=== PATIENT | female | born 2000 | race Caucasian/White ===

== ENCOUNTER 2024-04-29 13:16 | Emergency (ER) | payer BC ==
[~2024-04-29] VITALS: Ht 152.4 cm; Wt 39.0 kg
[2024-04-29 13:25] VITALS: BP_SYST 123; PULSE 158; RESP 18; TEMP 100.4; O2SAT 98
[2024-04-29] MEDS ORDERED: methylPREDNISolone SOD SUCC/PF 62.5 MG/ML VIAL ONE (14:03)
[2024-04-29] MEDS: DIPHENHYDRAMINE INJ 50 MG/ML VIAL IVP ONE (14:09)
[2024-04-29] MEDS: methylPREDNISolone SOD SUCC/PF 62.5 MG/ML VIAL IVP ONE (14:10)
[2024-04-29] MEDS: NACL 0.9% 1,000 ML IV ONE (14:27)
[2024-04-29] MEDS: IBUPROFEN 600 MG TABLET PO ONE (14:28)
[2024-04-29 15:03] LABS: CALCIUM 8.5 mg/dL (8.4-11.0); CREATININE 0.84 mg/dL (0.55-1.30); POTASSIUM 3.2 mmol/L (3.5-5.1)
[2024-04-29 15:07] LABS: HEMATOCRIT 39.3 % (36-48); PLATELET COUNT (AUTO) 182 K/uL (130-430)
[2024-04-29 15:13] LABS: BASOPHILS % (AUTO) 0.1 % (0.0-2.0); HEMOGLOBIN 13.7 g/dL (12.0-16.0); LYMPHOCYTES # (AUTO) 0.9 K/uL (1.0-5.5); LYMPHOCYTES % (AUTO) 10.6 % (20.5-51.5); MEAN CORPUSCULAR HEMOGLOBIN 31 pg (27-31); MEAN CORPUSCULAR HGB CONC 35 % (32-36); MEAN CORPUSCULAR VOLUME 90 fL (79.0-98.0); MONOCYTES # (AUTO) 0.4 K/uL (0.0-1.0); NEUTROPHILS # (AUTO) 7.3 K/uL (1.8-7.7); NEUTROPHILS % (AUTO) 84.3 % (40.0-70.0); RED BLOOD CELL COUNT(AUTO) 4.39 MIL/uL (4.2-6.2); WHITE BLOOD COUNT (AUTO) 8.7 K/uL (4.8-10.8)
[2024-04-29 15:38] VITALS: BP_SYST 123; PULSE 130; RESP 18; TEMP 98.9; O2SAT 98
== END 2024-04-29 15:37 | disposition home or self-care (01) ==
LOC: SED 13:16
DX: L50.9 Urticaria, unspecified (principal); R00.0 Tachycardia, unspecified
CPT/HCPCS: 36415; 80048; 81025; 85025; 93005; 99284; J1200; J2930